=== PATIENT | female | born 1995 | race African-American/Black ===

== ENCOUNTER 2019-07-18 19:40 | Emergency (ER) | payer MEDICAID ==
[~2019-07-18] VITALS: Ht 170.2 cm; Wt 61.7 kg
[2019-07-18 20:09] VITALS: BP 130/85; Ht 170.2 cm; Wt 61.7 kg
== END 2019-07-18 21:03 | disposition home or self-care (01) ==
LOC: ED 19:40
DX: R05 Cough (principal); J02.9 Acute pharyngitis, unspecified

== ENCOUNTER 2019-07-22 17:53 | Emergency (ER) | payer MEDICAID ==
[~2019-07-22] VITALS: Ht 170.2 cm; Wt 59.9 kg
[2019-07-22 17:57] VITALS: Ht 170.2 cm; Wt 59.9 kg
[2019-07-22 19:52] VITALS: BP 154/77
== END 2019-07-22 19:52 | disposition home or self-care (01) ==
LOC: ED 17:53
DX: B34.9 Viral infection, unspecified (principal); J00 Acute nasopharyngitis [common cold]
CPT/HCPCS: 87804; Q0092